=== PATIENT | male | born 1945 | race American Indian/Alaskan Native ===

== ENCOUNTER 2020-03-09 06:17 | Day surgery (SDC) | payer MEDICARE ==
[~2020-03-09 06:17] MED LIST: ceFAZolin/STERILE WATER 2 GM/20 ML SYRINGE IV NR
[2020-03-09] MEDS ORDERED: SODIUM CHLORIDE 0.9% 1000 ML 1,000 ML ONE (06:43)
[2020-03-09 07:14] LABS: Hematocrit 26.8 % (35.5-45.6); Hemoglobin 8.6 gm/dl (11.8-15.2); Mean Corpuscular HGB Conc 32 % (32-34); Mean Corpuscular Volume 94 fl (84-94); Platelet Count 208 K/mm3 (140-440); Red Blood Count 2.84 M/mm3 (3.65-5.03); Red Cell Distribution Width 15.2 % (13.2-15.2)
[2020-03-09] MEDS ORDERED: HEPARIN 10,000 UNITS/10 ML VIAL ONE (07:15)
[2020-03-09] MEDS ORDERED: BUPIVACAINE/PF (0.5%) 5 MG/1 ML 10 ML VIAL INFILTRATI ONE ×3 (07:15→08:55)
[2020-03-09] MEDS ORDERED: SODIUM CHLORIDE P/F VIAL 10 ML 10 ML ONE (07:15)
[2020-03-09] MEDS ORDERED: rifAMPin 600 MG VIAL ONE (07:16)
[2020-03-09] MEDS ORDERED: SODIUM CHLORIDE 0.9% 250ML 250 ML ONE (07:16)
[2020-03-09] MEDS ORDERED: fentaNYL 100 MCG/2 ML INJ IV PRN (07:18)
[2020-03-09] MEDS ORDERED: ONDANSETRON 4 MG/2 ML INJ IV PRN (07:18)
--- NOTE | 2020-03-09 07:19 | Anesthesia Day of Surgery ---
Anesthesia Day of Surgery - Day of Surgery Patient Examined: Yes Patient H&P Reviewed: Yes Patient is NPO: Yes
--- NOTE | 2020-03-09 07:27 | Anesthesia Consultation ---
Anesthesia Consult and Med Hx Date of service: 03/09/20 - Airway Anesthetic Teeth Evaluation: Good (Missing) ROM Head & Neck: Adequate Mental/Hyoid Distance: Adequate Mallampati Class: Class III Intubation Access Assessment: Possibly Difficult - Pre-Operative Health Status ASA Pre-Surgery Classification: ASA3 Proposed Anesthetic Plan: General - Pulmonary Hx Smoking: No Hx Asthma: Yes COPD: Yes (DAILY INHALERS) Hx Pneumonia: No Hx Sleep Apnea: Yes (DX SLEEP APNEA WITH CPAP USE) - Cardiovascular System Hx Hypertension: Yes (EF .55-.60) Hx Heart Attack/AMI: No Hx Valvular Heart Disease: Yes (AORTIC STENOSIS) Hx Heart Murmur: Yes - Central Nervous System 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
[2020-03-09 07:30] LABS: Calcium 8.9 mg/dL (8.4-10.2)
[2020-03-09] MEDS ORDERED: HYDROmorphone 1 MG/1 ML INJ ONE (07:49)
[2020-03-09] MEDS ORDERED: LIDOCAINE MPF (2%) 20 MG/1 ML VIAL 5 ML ONE (07:49)
[2020-03-09] MEDS ORDERED: propofoL 200 MG/20 ML VIAL IV ONE (07:49)
[2020-03-09] MEDS ORDERED: SODIUM CHLORIDE 0.9% 1000 ML 1,000 ML IV SCH (08:00)
[2020-03-09] MEDS ORDERED: LIDOCAINE 1%/EPINEPHRINE 1:100,000 VIAL (20 ML) INFILTRATI ONE (08:28)
[2020-03-09] MEDS ORDERED: HEPARIN 1,000 UNIT in SODIUM CHLORIDE 0.9% 250ML 250 ML IR ONE (08:55)
[2020-03-09] MEDS ORDERED: SODIUM CHLORIDE 0.9% IRR 1,000 ML BOTTLE IR ONE (08:55)
[2020-03-09] MEDS ORDERED: rifAMPin 600 MG in SODIUM CHLORIDE 0.9% 50 ML IR ONE (08:56)
[2020-03-09] MEDS ORDERED: HEPARIN 2,000 UNIT in SODIUM CHLORIDE 0.9% 500 ML 500 ML IR ONE (08:56)
[2020-03-09] MEDS ORDERED: ONDANSETRON 4 MG/2 ML INJ ONE (09:40)
--- NOTE | 2020-03-09 09:48 | Operative Report ---
Operative Report Operative Report: Date of procedure: 03/09/2020 Pre-operative diagnosis: Chronic Renal Insufficiency Post-operative diagnosis: Same Procedure(s): 1. Creation of Left Brachial Artery to Axillary Vein AV Graft with 6 mm Bovine Graft Artergraft Surgeon: Efren Mallory MD [employer] Driver: None Anesthesia: General Endotracheal Anesthesia EBL: Minimal Counts: Correct Complications: None Condition: Stable Findings: Successful Creation of Left Arm AV Graft Specimen: None Indication: The patient is a 74-year-old male with a history of stage IV chronic renal insufficiency who was not yet on hemodialysis but it is anticipated that he will require dialysis in the near future. He had a vein mapping that demonstrated he has not a candidate for creation of an arteriovenous fistula so he requires creation of an arteriovenous graft. He was given the risk, benefits, and alternative procedures and consented to the procedure. Description of Procedure: The patient was brought to the operating room and laid in supine position after general endotracheal anesthesia was achieved the left arm was prepped and draped in normal sterile fashion. A longitudinal incision was made on the medial aspect of the arm just proximal to the antecubital crease and carried down to the brachial artery using sharp dissection. The brachial artery was dissected out circumferentially both proximally and distally and controlled with vessel loops. A second incision was created in longitudinal fashion on the medial aspect of the arm just distal to the axillary crease and carried down to the axillary vein using sharp dissection. Axillary vein was dissected out circumferentially and controlled with a vessel loop. I then used a Yanet-Wick tunneler to tunnel from the brachial artery incision to the axillary vein incision and then put an 6 mm bovine through the tunnel. I infused with heparinized saline to ensure that it was not twisted or kinked. I put the brachial artery vessel loops on tension controlling the flow and then created an arteriotomy using an 11 blade and Foreman scissors. I beveled the graft and created an end-to-side anastomosis using 6-0 Prolene running fashion. I clamped the graft just proximal to the anastomosis and then released the vessel loops restoring flow in the brachial artery. I placed quick clot in incision to achieve hemostasis. I cut the proximal end of the graft to the appropriate length and beveled the graft in preparation for a venous anastomosis. I controlled the axillary vein a Satinsky clamp and created a venotomy using an 11 blade and Foreman scissors. I created an end to side anastomosis using a 6-0 Prolene in running fashion. Prior to completing the anastomosis I flushed the graft to ensure there was no thrombus and then completed the anastamosis. I released all clamps allowing flow into the AV graft which had an excellent thrill. I packed the wound with quick clot to achieve hemostasis. I anesthetized both wounds with 0.5% Marcaine and then closed both wounds in 2 layers using 3-0 Vicryl in running fashion in the deep dermal layer and 4-0 Monocryl in running fashion the subcuticular layer. I dressed both wounds with Dermabond. The patient tolerated the procedure well all sponge needle and instrument counts were correct the patient was taken to recovery in stable condition.
--- NOTE | 2020-03-09 09:51 | Short Stay Summary ---
Short Stay Documentation Date of service: 03/09/20 Narrative H&P: See H&P - History H&P: obtained from office - Allergies and Medications Current Medications: Allergies No Known Allergies Allergy (Verified 03/04/20 09:23) Home Medications Medication Instructions Recorded Confirmed Last Taken Type Albuterol Sulfate 2 puff INHALATION PRN 03/01/20 03/01/20 Unknown History Anoro Ellipta 62.5-25 Mcg INH 25 mcg INHALATION DAILY 03/01/20 03/09/20 03/08/20 09:00 History AtorvaSTATin 40 mg PO DAILY 03/01/20 03/09/20 03/08/20 09:00 History Clopidogrel [Plavix] 75 mg PO DAILY 03/01/20 03/09/20 03/08/20 09:00 History Furosemide [Lasix TAB] 40 mg PO BID 03/01/20 03/09/20 03/08/20 17:00 History Insulin Aspart (Nf) [NovoLOG 4 units SQ BID 03/01/20 03/09/20 03/08/20 17:00 History Flexpen] Insulin Detemir (Nf) [Levemir 35 units SQ DAILY 03/01/20 03/09/20 03/08/20 09:00 History Flextouch (Nf)] Labetalol 300mg TAB 300 mg PO TID 03/01/20 03/09/20 03/09/20 05:00 History Nifedipine ER 90 mg PO DAILY 03/01/20 03/09/20 03/08/20 09:00 History One-Daily Multi-Vitamin 1 tab PO DAILY 03/01/20 03/09/20 03/08/20 09:00 History allopurinoL [Zyloprim] 100 mg PO DAILY 03/01/20 03/09/20 03/08/20 09:00 History amLODIPine 5 mg PO DAILY 03/01/20 03/09/20 03/08/20 09:00 History hydrALAZINE 100 mg PO BID 03/01/20 03/09/20 03/08/20 17:00 History rOPINIRole [Requip] 0.25 mg PO HS 03/01/20 03/09/20 03/08/20 20:00 History Active Medications Cefazolin Sodium (Ancef/Sterile Water 2 Gm/20 Ml) 2 gm IV PREOP NR Stop: 03/09/20 23:59 Fentanyl (Sublimaze) 50 mcg IV Q5MIN PRN PRN Reason: Pain , Severe (7-10) Stop: 03/09/20 22:00 Sodium Chloride (Nacl 0.9% 1000 Ml) 1,000 mls @ 42 mls/hr IV DIRECT MELODY Last Admin: 03/09/20 07:15 Dose: 42 mls/hr Documented by: Ondansetron HCl (Zofran) 4 mg IV ONCE PRN PRN Reason: Nausea And Vomiting Stop: 03/09/20 20:00 - Brief post op/procedure progress note Date of procedure: 03/09/20 Pre-op diagnosis: Chronic Renal Insufficiency Post-op diagnosis: same Procedure: Creation of Left Brachial Artery to Left Axillary Vein AV Graft with 6 mm Bovine Artegraft Anesthesia: LANDY, local Surgeon: BRADFORD AYALA Estimated blood loss: minimal Pathology: none Condition: stable - Disposition Condition at discharge: Good Disposition: DC-01 TO HOME OR SELFCARE Short Stay Discharge Plan Activity: other (No heavy lifting with left arm for 2 weeks.) Wound: open to air, keep clean and dry (Okay to wash the wound with soap and water but do not soak in water for 2 weeks.) Follow up with: BRADFORD AYALA MD [Staff Physician] - 14 Days Prescriptions: HYDROcodone/APAP 7.5-325 [[place] 7.5/325] 1 each PO Q6HR PRN #40 tablet PRN Reason: Pain
[2020-03-09 11:14] VITALS: BP 142/49
== END 2020-03-09 06:18 | disposition home or self-care (01) ==
LOC: OR 06:17
PROVIDERS: ATTEND Surgery Vascular Surgery
DX: I12.0 Hypertensive chronic kidney disease with stage 5 chronic kidney disease or end stage renal disease (principal); E11.22 Type 2 diabetes mellitus with diabetic chronic kidney disease; N18.6 End stage renal disease; E11.42 Type 2 diabetes mellitus with diabetic polyneuropathy; G62.9 Polyneuropathy, unspecified; J44.9 Chronic obstructive pulmonary disease, unspecified; E78.00 Pure hypercholesterolemia, unspecified; E66.9 Obesity, unspecified; G47.30 Sleep apnea, unspecified; M19.90 Unspecified osteoarthritis, unspecified site; D64.9 Anemia, unspecified; Z79.899 Other long term (current) drug therapy; Z79.4 Long term (current) use of insulin; Z85.46 Personal history of malignant neoplasm of prostate; Z98.890 Other specified postprocedural states; Z86.73 Personal history of transient ischemic attack (TIA), and cerebral infarction without residual deficits
CPT/HCPCS: 36415; 36830; 80048; 82962; 85027; C1768; J0690; J1170; J1644; J2405; J2704; J3490; J7030; J7040; J7050